=== PATIENT | female | born 1980 | race Caucasian/White ===

== ENCOUNTER 2016-12-28 16:44 | Emergency (ER) | payer SELFPAY ==
--- NOTE | 2016-12-28 19:30 | ED ORDER SUMMARY ---
..... Patient: YSABEL BAKER OrderSheet [facility] VisitID: [id number] [address] [place] [address] 36y, F Registration Date/Time: 12/28/2016 ORDER SHEET Weight: 58.9 kg (stated) Allergies: Reglan, Compazine GENERAL ORDERS: CBC w Diff Urgent (17:16 12/28/2016 Pia Tabares) (Ack 17:18 Bert) (18:20 JAVIERoerner) CMP Urgent (17:12/28/2016 Pia Tabares) (Ack 17:18 Bert) (18:20 JAVIERoerner) UA-Culture if indicated Urgent (17:12/28/2016 Pia Tabares) (Ack 17:18 Bert) (Cancelled: Verbal per [id number] Maximino R.N.) MEDICATION ORDERS: IV FLUIDS: IV NS : initial bolus none -, then 1000 mL/hr for X1 (NOW) (17:15 12/28/2016 Pia Tabares) (Ack 17:30 SStone R.N.) (17:46 SStone R.N.) Toradol IV 30 mg (NOW) (17:15 12/28/2016 Pia Tabares) (Ack 17:30 SStone R.N.) (17:47 SStone R.N.) Zofran IV 4 mg (NOW) (17:12/28/2016 Pia Tabares) (Ack 17:30 SStone R.N.) (17:47 SStone R.N.) Benadryl IV 25 mg (NOW) (17:16 12/28/2016 Pia Tabares) (Ack 17:31 SStone R.N.) (17:48 SStone R.N.) Dexamethasone IV 10 mg (NOW) (17:16 12/28/2016 Pia Tabares) (Ack 17:31 SStone R.N.) (17:48 SStone R.N.) Morphine IV 4 mg (HIGH ALERT MEDICATION, NOW) (18:52 12/28/2016 Pia Tabares) (Ack 19:09 CBradmelquiades R.N.) (19:17 Maximino Richardson) ORDER SHEET NOTES: [Electronically signed by Henna Tyler R.N. (19:44 12/28/2016)] [Electronically signed by Mike Kingston Dr. (22:05 12/28/2016)] [Electronically locked/signed by Henna Tyler R.N. (19:44 12/28/2016)]
--- NOTE | 2016-12-28 19:30 | ED NURSING NOTES ---
Clinical Report - Nurses [facility] [place] [address] [place] [address] 12/28/2016 16:47 Patient: YSABEL BAKER TRIAGE Triage time 16:59. Acuity: LEVEL 3. Chief Complaint: HEADACHE. --17:03 Jessica Walker R.N. 16:59 12/28/16. BP: 132/85. HR: 65. RR: 20. O2 saturation: 99%. Temp: 97.9 F. Pain level now: 03/04. --17:03 Jessica Walker R.N. Weight: 58.9 kg stated. Height/Length: 60 inches Per Patient. BMI: 25.4. --17:01 Jessica Walker R.N. Medications Maxalt prn. --17:00 Jessica Walker R.N. Allergies Reglan. --17:00 Jessica Walker R.N. Compazine. --17:00 Jessica Walker R.N. History Arrived by private vehicle. Historian: patient. This started yesterday. Treatment [employer]: (Maxalt x 2 and ibuprofen without relief.). PAST MEDICAL HX: Headaches. Last normal menstrual period- Pt. has an IUD and has not had periods while using it. SOCIAL HX: Current every day heavy tobacco smoker (cigarette)- 1 pack per day. History of occasional drug use: marijuana. No alcohol use. No infectious disease exposure. FALL RISK ASSESSMENT: Fall risk assessment completed. No fall risk identified. NUTRITIONAL RISK ASSESSMENT: The nutritional risk assessment revealed no deficiencies. FUNCTIONAL ASSESSMENT: Functional assessment: no impairments noted. LEARNING NEEDS ASSESSMENT: The learning needs assessment revealed no barriers. SKIN INTEGRITY ASSESSMENT: Skin integrity risk assessment completed. No skin integrity risk identified. --17:03 Jessica Walker R.N. PROBLEMS: Cystitis. Renal Colic. Nephrolithiasis. Depression. Flank Pain. Chronic Headache. --17:01 Jessica Walker R.N. Renal Colic [RuleOut]. --17:01 Jessica Walker R.N. ADDITIONAL SURGERIES: ACL graft . Appendectomy. . Cystoscopy. Lithotripsy. Tonsillectomy. Ureteral Stent. --17:01 Jessica Walker R.N. Interventions ID band on patient. To treatment room. --17:03 Jessica Walker R.N. PHYSICAL ASSESSMENT Ambulatory to room. GENERAL / NEURO / PSYCH: Alert. Oriented X 4. Appears in pain. Speech within normal limits. HEENT: No facial asymmetry noted. Pupils equal, round and reactive to light. RESPIRATORY: Respirations not labored. GI / : Abdomen soft and nontender. SKIN: Skin is warm and dry. --17:03 Jessica Walker R.N. NURSING PROGRESS NOTES Patient gowned. Head of bed elevated. Lights dimmed. Call light placed in reach. Bed placed in lowest position. Brakes of bed on. Patient ready for evaluation- chart flagged. Patient waiting for evaluation. --17:04 Jessica Walker R.N. 17:46 12/28/2016 Site #1 started via IV in the right antecubital space with an 20g angiocath. Blood drawn: rainbow set. --17:46 Jessica Walker R.N. 17:46 12/28/2016 Started bag #1 1000 mL IV Fluids IV NS (Saline); bolus of 750 mL wide open via site #1 --17:46 Jessica Walker R.N. 17:47 12/28/2016 Toradol IVP 30 mg given over 2 minute(s) via site #1. IV patency established. IV site checked: no pain, redness, or swelling. IV flushed thoroughly pre- and post-medication administration. --17:47 Jessica Walker R.N. 17:47 12/28/2016 Zofran (Ondansetron HCl) IVP 4 mg given over 2 minute(s) via site #1. IV patency established. IV site checked: no pain, redness, or swelling. IV flushed thoroughly pre- and post-medication administration. --17:47 Jessica Walker R.N. 17:48 12/28/2016 Benadryl (DiphenhydrAMINE HCl) IVP 25 mg given over 2 minute(s) via site #1. IV patency established. IV site checked: no pain, redness, or swelling. IV flushed thoroughly pre- and post-medication administration. --17:48 Jessica Walker R.N. 17:48 12/28/2016 Dexamethasone IVP 10 mg given over 5 minute(s) via site #1. IV patency established. IV site checked: no pain, redness, or swelling. IV flushed thoroughly pre- and post-medication administration. --17:48 Jessica Walker R.N. ( pt medicated and resting quietly.). --18:01 Jessica Walker R.N. 18:27 12/28/16. BP: 110/63. HR: 95. RR: 18. O2 saturation: 100%. Pain level now: 02/01. --18:27 Jessica Walker R.N. ( pt resting, states her headache is only marginally better. MD aware. No new orders given.). --18:27 Jessica Walker R.N. 19:15 12/28/2016 Morphine IVP 4 mg given over 2 minute(s) via site #1. Allergies verified, confirmed 5 rights and sedative warning given to the patient. IV patency established. IV site checked: no pain, redness, or swelling. IV flushed thoroughly pre- and post-medication administration. IVP given by RN. --19:17 Henna Tyler R.N. 19:15 12/28/2016 IV Fluids IV NS Discontinued: completed upon discharge. Total amount infused: 1000 mL. IV patency established. IV site checked: no pain, redness, or swelling. IV flushed thoroughly. --19:41 Henna Tyler R.N. 19:35 12/28/2016 Site #1 removed upon discharge. Catheter intact. Manual pressure and bandage applied. --19:41 Henna Tyler R.N. DISPOSITION / DISCHARGE Departure time: 1940. Condition at departure: improved and stable. No learning barriers present. Discharge instructions provided and reviewed with the patient. Reviewed medication(s) side effects, precautions, dosing and course information. Prescription(s) given to the patient. Patient verbalized understanding. Written instructions provided in Nepali. No activity restrictions or note given. The patient was discharged home and accompanied by spouse. She left the Emergency Department ambulatory and via private vehicle. Spouse driving. FALL RISK ASSESSMENT: Fall risk assessment completed. No fall risk identified. --19:44 Henna Tyler R.N. 19:40 12/28/16. BP: 106/70 taken on the left arm, while lying. HR: 65 (regular and normal rate). RR: 18 (regular and unlabored). O2 saturation: 97% on room air. Temp: deferred. Pain level now: 07/04. --19:44 Henna Tyler R.N. Locked/Released at 12/28/2016 19:44 by Henna Tyler R.N.
--- NOTE | 2016-12-28 19:30 | ED CLINICAL REPORT ---
Clinical Report - Physicians/Mid Levels [facility] [address] [place] [address] 12/28/2016 16:47 Patient: YSABEL BAKER Time Seen: 16:58; initial patient contact. Arrived- By private vehicle. Historian- patient. HISTORY OF PRESENT ILLNESS Chief Complaint: HEADACHE. Is still present. This started about 2 days ago. It was gradual in onset and has been constant. It is described as similar to previous headaches and pressure. Located in the frontal region. No neck pain. Not located in the facial region. At its maximum, severity described as moderate. Modifying factors: relieved by nothing. Not worsened by anything. The patient has had photophobia, nausea and vomiting. No preceding symptoms or blurred vision. Similar symptoms previously: Many times. Recent medical care: Not recently seen/assessed. REVIEW OF SYSTEMS No fever, sinus pressure, head injury or abdominal pain. She has had diarrhea, nausea and vomiting. All systems otherwise negative, except as recorded above. PAST HISTORY Cystitis. Renal Colic. Nephrolithiasis. Depression. Flank Pain. Chronic Headache. Renal Colic SURGERIES: ACL graft . Appendectomy. . Cystoscopy. Lithotripsy. Tonsillectomy. Ureteral Stent. -. SOCIAL HISTORY Current every day smoker. History of drug use: marijuana. ADDITIONAL NOTES The nursing notes have been reviewed. PHYSICAL EXAM Vital Signs: 12/28/2016 16:59 BP: 132/85. HR: 65. RR: 20. O2 saturation: 99%. Temp: 97.9 F. Pain level now: 9/10. Have been reviewed as normal. Appearance: Alert. No acute distress. Eyes: Photophobia present. Eyes normal inspection. ENT: Pharynx normal. Neck: Normal inspection. Neck supple. No meningeal signs. CVS: Normal heart rate and rhythm. Heart sounds normal. Respiratory: No respiratory distress. Breath sounds normal. Abdomen: Soft and nontender. Skin: Skin warm and dry. Normal skin color. No rash. Neuro: Oriented X 3. Alert. Mood/affect normal. Speech normal. LABS, X-RAYS, AND EKG Laboratory Tests: CBC w Diff: (CHARY: 12/28/2016 17:50) ( MsgRcvd 12/28/2016 17:59) Final results Test Result Flag Units (Reference) WHITE BLOOD COUNT 8.2 K/uL (4.5-11.5) RED BLOOD COUNT 4.59 M/uL (4.00-5.20) HEMOGLOBIN 14.4 gm/dL (12.0-16.0) HEMATOCRIT 42.5 % (36.0-46.0) MEAN CELL VOLUME 93 fL (80-100) MEAN CORPUSCULAR HGB 32 pg (26-34) MEAN CORPUSCULAR HGB CONC 34 g/dL (31-37) RED CELL DISTRIBUTION WIDTH 12.8 % (11.6-14.8) PLATELET COUNT 301 K/uL (150-400) NEUTROPHIL % 63.2 % (50-75) LYMPH % 29.2 % (25-40) MONO % 6.4 % (3-14) EOSINOPHIL % 0.7 % (0-4) BASOPHIL % 0.5 % (0-2) . PROGRESS AND PROCEDURES Disposition: Discharged home in good and improved condition. Condition: good. CLINICAL IMPRESSION Chronic recurrent migraine headache without aura- poorly controlled. No status migrainosus, hemiplegia, ophthalmoplegia or persistent aura. Not relationship to menses. INSTRUCTIONS Your Current Medications: CONTINUE TAKING THE FOLLOWING MEDICATIONS: Maxalt prn*. Prescription Medications: Zofran (orally disintegrating tablets) 4 mg: take 1 orally every 6 hours as needed for nausea and vomiting. Dispense ten (10). No refill. Substitution is permissible. Follow-up: Follow up with your doctor in about four days. Call for an appointment. Screening today revealed the patient's blood pressure to be in the normal range. (Electronically signed by Mike Kingston Dr. 12/28/2016 22:05)
--- NOTE | 2016-12-28 19:30 | ED ORDER SUMMARY ---
..... Patient: YSABEL BAKER OrderSheet [facility] VisitID: [id number] [address] [place] [address] 36y, F Registration Date/Time: 12/28/2016 ORDER SHEET Weight: 58.9 kg (stated) Allergies: Reglan, Compazine GENERAL ORDERS: CBC w Diff Urgent (17:16 12/28/2016 Pia Tabares) (Ack 17:18 Bert) (18:20 JAVIERoerner) CMP Urgent (17:12/28/2016 Pia Tabares) (Ack 17:18 Bert) (18:20 JAVIERoerner) UA-Culture if indicated Urgent (17:12/28/2016 Pia Tabares) (Ack 17:18 Bert) (Cancelled: Verbal per [id number] Maximino R.N.) MEDICATION ORDERS: IV FLUIDS: IV NS : initial bolus none -, then 1000 mL/hr for X1 (NOW) (17:15 12/28/2016 Pia Tabares) (Ack 17:30 SStone R.N.) (17:46 SStone R.N.) Toradol IV 30 mg (NOW) (17:15 12/28/2016 Pia Tabares) (Ack 17:30 SStone R.N.) (17:47 SStone R.N.) Zofran IV 4 mg (NOW) (17:12/28/2016 Pia Tabares) (Ack 17:30 SStone R.N.) (17:47 SStone R.N.) Benadryl IV 25 mg (NOW) (17:16 12/28/2016 Pia Tabares) (Ack 17:31 SStone R.N.) (17:48 SStone R.N.) Dexamethasone IV 10 mg (NOW) (17:16 12/28/2016 Pia Tabares) (Ack 17:31 SStone R.N.) (17:48 SStone R.N.) Morphine IV 4 mg (HIGH ALERT MEDICATION, NOW) (18:52 12/28/2016 Pia Tabares) (Ack 19:09 CBradmelquiades R.N.) (19:17 Maximino Richardson) ORDER SHEET NOTES: [Electronically signed by Henna Tyler R.N. (19:44 12/28/2016)] [Electronically signed by Mike Kingston Dr. (22:05 12/28/2016)] [Electronically locked/signed by Henna Tyler R.N. (19:44 12/28/2016)]
--- NOTE | 2016-12-28 22:05 | ED DISCHARGE INSTRUCTIONS ---
Patient: YSABEL BAKER General Instructions [facility] VisitID: [id number] [address] [place] [address] 36y, F Registration Date/Time: 12/28/2016 Chronic recurrent migraine headache without aura- poorly controlled. No status migrainosus, hemiplegia, ophthalmoplegia or persistent aura. Not relationship to menses. INSTRUCTIONS Your Current Medications: CONTINUE TAKING THE FOLLOWING MEDICATIONS: Maxalt prn*. Prescription Medications: Zofran (orally disintegrating tablets) 4 mg: take 1 orally every 6 hours as needed for nausea and vomiting. Dispense ten (10). No refill. Substitution is permissible. Follow-up: Follow up with your doctor in about four days. Call for an appointment. Screening today revealed the patient's blood pressure to be in the normal range. ADDITIONAL INFORMATION Migraine Headache Migraine headaches are related to changes in blood flow to the brain. This causes throbbing or constant pain on one or both sides of the head. The pain may last from a few hours to several days. There is usually nausea, vomiting, sensitivity to light and sound, and blurred vision. A migraine attack may be triggered by emotional stress, hormone changes during the menstrual cycle, oral contraceptives, alcohol use, certain foods containing tyramine, eye strain, weather changes, missing meals, or too little or too much sleep. Home Care For This Headache: 1) If you were given pain medicine for this headache, do not drive yourself home . Arrange for a ride, instead. When you get home, try to sleep. You should feel much better when you wake up. 2) Migraine headaches may improve with an ice pack on the forehead or at the base of the skull. Heat to the back of your neck may relieve any neck spasm. 3) Drink only clear liquids or eat a very light diet to avoid nausea/vomiting until symptoms improve. Preventing Future Headaches: 1) Pay attention to those factors that seem to trigger your headache. Try to avoid them when you can. If you have frequent headaches, it is useful to keep a diary of what you were doing, feeling or eating in the hours before each attack. Show this to your doctor to help find the cause of your headaches. a) If you feel that stress is a factor in your headaches, look at the sources of stress in your life. Find ways to release the build-up of those stresses by using regular exercise, relaxation methods (yoga, meditation), bio-feedback or simply taking time-out for yourself. For more information about this, consult your doctor or go to a local bookstore and review books and tapes on this subject. b) Tyramine is a substance present in the following foods : chocolate, yogurt, all cheeses except cottage cheese and cream cheese. smoked or pickled fish and meat (including velázquez, caviar, bologna, pepperoni, salami), liver, avocados, bananas, figs, raisins, and red wine. Be aware that these foods may trigger a migraine in some persons. Try taking these foods out of your diet for 1-2 months to see if this reduces headache frequency. Treating Future Attacks: 1) At the first sign of a headache, take time out if possible. Find a quiet, dark, comfortable place to sit or lie down. Let yourself relax or sleep. 2) An ice pack on the forehead or area of greatest pain may help. If you are having muscle spasm and tightness of the neck, a heating pad and massage to this area may be helpful. 3) If you have been prescribed a medicine to stop a migraine headache, use this at the very first warning sign of the headache (aura or initial pain) for best results. Follow Up with your doctor if the headache is not better within the next 24 hours. If you have frequent headaches you should discuss a treatment plan with your primary care doctor. Ask if you can have medicine to take at home the next time you get a bad headache. Poorly controlled chronic headaches may require a referral to a neurologist (headache specialist). Get Prompt Medical Attention if any of the following occur: Your head pain gets worse, or does not improve within 24 hours Repeated vomiting (cant keep liquids down) Sinus or ear or throat pain (not already reported) Fever of 100.4 F (38 C) or higher, or as directed by your healthcare provider Stiff neck Extreme drowsiness, confusion or fainting Dizziness, vertigo (dizziness with spinning sensation) Weakness of an arm or leg or one side of the face Difficulty with speech or vision Ondansetron Oral disintegrating tablet What is this medicine? ONDANSETRON (on EBEN se cortez) is used to treat nausea and vomiting caused by chemotherapy. It is also used to prevent or treat nausea and vomiting after surgery. How should I use this medicine? These tablets are made to dissolve in the mouth. Do not try to push the tablet through the foil backing. With dry hands, peel away the foil backing and gently remove the tablet. Place the tablet in the mouth and allow it to dissolve, then swallow. While you may take these tablets with water, it is not necessary to do so. Talk to your customs compliance specialist regarding the use of this medicine in children. Special care may be needed. What side effects may I notice from receiving this medicine? Side effects that you should report to your doctor or health critical care nurse practitioner as soon as possible: allergic reactions like skin rash, itching or hives, swelling of the face, lips, or tongue breathing problems dizziness fast or irregular heartbeat feeling faint or lightheaded, falls fever and chills swelling of the hands and feet tightness in the chest Side effects that usually do not require medical attention (report to your doctor or health critical care nurse practitioner if they continue or are bothersome): constipation or diarrhea headache What may interact with this medicine? Do not take this medicine with any of the following medications: -apomorphine -cisapride -dofetilide -dronedarone -pimozide -thioridazine -ziprasidone This medicine may also interact with the following medications: -carbamazepine -phenytoin -rifampicin -tramadol -other medicines that prolong the QT interval (cause an abnormal heart rhythm) What if I miss a dose? If you miss a dose, take it as soon as you can. If it is almost time for your next dose, take only that dose. Do not take double or extra doses. Where should I keep my medicine? Keep out of the reach of children. Store between 2 and 30 degrees C (36 and 86 degrees F). Throw away any unused medicine after the expiration date. What should I tell my health care provider before I take this medicine? They need to know if you have any of these conditions: heart disease history of irregular heartbeat liver disease low levels of magnesium or potassium in the blood an unusual or allergic reaction to ondansetron, granisetron, other medicines, foods, dyes, or preservatives or trying to get breast-feeding What should I watch for while using this medicine? Check with your doctor or health critical care nurse practitioner as soon as you can if you have any sign of an allergic reaction. You have been given the following additional information: Headache, Migraine (Classical) Ondansetron Oral disintegrating tablet (Electronically signed by Mike Kingston Dr. 12/28/2016 22:05)
--- NOTE | 2016-12-28 22:06 | ED MAR SUMMARY ---
..... Medication Administration Record [facility] [address] [place] [address] Patient: YSABEL BAKER Visit ID: [id number] 36y, F Weight: 58.9 kg Height/Length: 60 in BMI: 25.4 ALLERGIES: Compazine, Reglan Start 17:46 12/28/2016 Jessica Walker R.N., Stop 19:15 12/28/2016 Henna Tyler R.N. Medication Administered: IV NS (SALINE), Dose: IV Fluids, Bolus: 750 mL wide open, Dispensed: 1000 mL bag, Site: #1 right AC. Medication Ordered: IV NS : initial bolus none -, then 1000 mL/hr for X1 (NOW). Given 17:47 12/28/2016 Jessica Walker R.N. Medication Administered: TORADOL [IVP], Dose: 30 mg IVP over 2 minute(s), Site: #1 right AC. Medication Ordered: Toradol IV 30 mg (NOW). Given 17:47 12/28/2016 Jessica Walker R.N. Medication Administered: ZOFRAN [IVP] (ONDANSETRON HCL), Dose: 4 mg IVP over 2 minute(s), Site: #1 right AC. Medication Ordered: Zofran IV 4 mg (NOW). Given 17:48 12/28/2016 Jessica Walker R.N. Medication Administered: BENADRYL [IVP] (DIPHENHYDRAMINE HCL), Dose: 25 mg IVP over 2 minute(s), Site: #1 right AC. Medication Ordered: Benadryl IV 25 mg (NOW). Given 17:48 12/28/2016 Jessica Walker R.N. Medication Administered: DEXAMETHASONE [IVP], Dose: 10 mg IVP over 5 minute(s), Site: #1 right AC. Medication Ordered: Dexamethasone IV 10 mg (NOW). Given 19:15 12/28/2016 Henna Tyler R.N. Medication Administered: MORPHINE [IVP], Dose: 4 mg IVP over 2 minute(s), Site: #1 right AC. Medication Ordered: Morphine IV 4 mg (HIGH ALERT MEDICATION, NOW).
--- NOTE | 2016-12-28 22:06 | ED MED RECONCILIATION SUMMARY ---
Patient: YSABEL BAKER Medication Reconciliation Report [facility] VisitID: [id number] [address] [place] [address] 36y, F Registration Date/Time: 12/28/2016 Weight: 58.9 kg Height/Length: 60 in. BMI: 25.4 ALLERGIES: Compazine, Reglan The patient's Home Medications are listed below: CONTINUE TAKING THE FOLLOWING MEDICATIONS: Maxalt prn The source(s) of the original Home Medication information: Not obtained. The following Medications were given to the patient in the Emergency Department: IV NS IV Fluids bolus 750 mL wide open, administered: 12/28/2016 5:46:00 PM Toradol [IVP] IVP 30 mg, administered: 12/28/2016 5:47:00 PM Zofran [IVP] IVP 4 mg, administered: 12/28/2016 5:47:00 PM Benadryl [IVP] IVP 25 mg, administered: 12/28/2016 5:48:00 PM Dexamethasone [IVP] IVP 10 mg, administered: 12/28/2016 5:48:00 PM Morphine [IVP] IVP 4 mg, administered: 12/28/2016 7:15:00 PM The following Medications were prescribed to the patient: Zofran (orally disintegrating tablets) 4 mg: take 1 orally every 6 hours as needed for nausea and vomiting. Dispense ten (10). No refill. Substitution is permissible. -- Mike Kingston Dr.
--- NOTE | 2016-12-28 22:06 | ED MAR SUMMARY ---
..... Medication Administration Record [facility] [address] [place] [place] [address] Patient: YSABEL BAKER Visit ID: [id number] 36y, F Weight: 58.9 kg Height/Length: 60 in BMI: 25.4 ALLERGIES: Compazine, Reglan Start 17:46 12/28/2016 Jessica Walker R.N., Stop 19:15 12/28/2016 Henna Tyler R.N. Medication Administered: IV NS (SALINE), Dose: IV Fluids, Bolus: 750 mL wide open, Dispensed: 1000 mL bag, Site: #1 right AC. Medication Ordered: IV NS : initial bolus none -, then 1000 mL/hr for X1 (NOW). Given 17:47 12/28/2016 Jessica Walker R.N. Medication Administered: TORADOL [IVP], Dose: 30 mg IVP over 2 minute(s), Site: #1 right AC. Medication Ordered: Toradol IV 30 mg (NOW). Given 17:47 12/28/2016 Jessica Walker R.N. Medication Administered: ZOFRAN [IVP] (ONDANSETRON HCL), Dose: 4 mg IVP over 2 minute(s), Site: #1 right AC. Medication Ordered: Zofran IV 4 mg (NOW). Given 17:48 12/28/2016 Jessica Walker R.N. Medication Administered: BENADRYL [IVP] (DIPHENHYDRAMINE HCL), Dose: 25 mg IVP over 2 minute(s), Site: #1 right AC. Medication Ordered: Benadryl IV 25 mg (NOW). Given 17:48 12/28/2016 Jessica Walker R.N. Medication Administered: DEXAMETHASONE [IVP], Dose: 10 mg IVP over 5 minute(s), Site: #1 right AC. Medication Ordered: Dexamethasone IV 10 mg (NOW). Given 19:15 12/28/2016 Henna Tyler R.N. Medication Administered: MORPHINE [IVP], Dose: 4 mg IVP over 2 minute(s), Site: #1 right AC. Medication Ordered: Morphine IV 4 mg (HIGH ALERT MEDICATION, NOW).
--- NOTE | 2016-12-28 22:06 | ED MED RECONCILIATION SUMMARY ---
Patient: YSABEL BAKER Medication Reconciliation Report [facility] VisitID: [id number] [address] [place] [address] 36y, F Registration Date/Time: 12/28/2016 Weight: 58.9 kg Height/Length: 60 in. BMI: 25.4 ALLERGIES: Compazine, Reglan The patient's Home Medications are listed below: CONTINUE TAKING THE FOLLOWING MEDICATIONS: Maxalt prn The source(s) of the original Home Medication information: Not obtained. The following Medications were given to the patient in the Emergency Department: IV NS IV Fluids bolus 750 mL wide open, administered: 12/28/2016 5:46:00 PM Toradol [IVP] IVP 30 mg, administered: 12/28/2016 5:47:00 PM Zofran [IVP] IVP 4 mg, administered: 12/28/2016 5:47:00 PM Benadryl [IVP] IVP 25 mg, administered: 12/28/2016 5:48:00 PM Dexamethasone [IVP] IVP 10 mg, administered: 12/28/2016 5:48:00 PM Morphine [IVP] IVP 4 mg, administered: 12/28/2016 7:15:00 PM The following Medications were prescribed to the patient: Zofran (orally disintegrating tablets) 4 mg: take 1 orally every 6 hours as needed for nausea and vomiting. Dispense ten (10). No refill. Substitution is permissible. -- Mike Kingston Dr.
== END 2016-12-28 19:41 | disposition home or self-care (01) ==
LOC: ED SRH 16:44
DX: G43.019 Migraine without aura, intractable, without status migrainosus (principal); H53.143 Visual discomfort, bilateral; F17.210 Nicotine dependence, cigarettes, uncomplicated
CPT/HCPCS: 90100; 95059

== ENCOUNTER 2016-12-31 18:23 | Emergency (ER) | payer SELFPAY ==
--- NOTE | 2016-12-31 19:12 | DIAGNOSTIC IMAGING REPORT ---
PROCEDURE: CT HEAD WITHOUT CONTRAST INDICATION: Occipital headache. History of migraines. TECHNIQUE: Noncontrast axial images with sagittal and coronal reformations. The patient was shielded. COMPARISON: Compared to a head CT on 10/29/2011. FINDINGS: Brain and ventricles are normal. No evidence of an acute process or hemorrhage. Sinuses and mastoids are normal. IMPRESSION: 1. Negative head CT. 2. Findings discussed with CL Juarez at [address] scans at this facility use dose modulation, iterative reconstruction, and/or weight-based dosing when appropriate to reduce radiation dose to as low as reasonably achievable.
--- NOTE | 2016-12-31 22:58 | ED ORDER SUMMARY ---
..... Patient: YSABEL BAKER OrderSheet [facility] VisitID: [id number] [place] [address] 36y, F Registration Date/Time: 12/31/2016 ORDER SHEET Weight: 61.2 kg (stated) Allergies: Compazine, Reglan GENERAL ORDERS: CT Head wo Cont Urgent (18:50 12/31/2016 EKoroleva P.A.-C) (Ack 18:54 KHoerner) (18:58 WDavenport) CBC w Diff Urgent (18:51 12/31/2016 EKoroleva P.A.-C) (Ack 18:54 KHoerner) (19:42 DDean R.N.) CMP Urgent (18:51 12/31/2016 EKoroleva P.A.-C) (Ack 18:54 KHoerner) (19:42 DDean R.N.) US Carotid Doppler Bilat Urgent (20:47 12/31/2016 EKoroleva P.A.-C) (Ack 20:48 CHagerty ER Plater Helper) (22:29 CHagerty ER Plater Helper) MEDICATION ORDERS: Meclizine PO 25 mg (NOW) (22:48 12/31/2016 EKoroleva P.A.-C) (Ack 23:06 RMarsden R.N.) (23:24 RMarsden R.N.) Phenergan IV 25 mg (HIGH ALERT MEDICATION, NOW) (22:48 12/31/2016 EKoroleva P.A.-C) (Ack 23:06 RMarsden R.N.) (23:24 RMarsden R.N.) IV FLUIDS: IV NS : initial bolus 1000 mL (1000 mL/hr), then 1000 mL/hr for X1 (NOW); Erwin (18:50 12/31/2016 EKoroleva P.A.-C) (Ack 19:42 DDean R.N.) (19:45 DDean R.N.) Toradol IV 30 mg (NOW) (18:52 12/31/2016 EKoroleva P.A.-C) (Ack 19:42 DDean R.N.) (19:46 DDean R.N.) Zofran IV 4 mg (NOW) (18:52 12/31/2016 EKoroleva P.A.-C) (Ack 19:42 DDean R.N.) (19:46 DDean R.N.) Dilaudid IV 1 mg (HIGH ALERT MEDICATION, NOW) (20:31 12/31/2016 EKoroleva P.A.-C) (Ack 20:37 DDean R.N.) (21:31 DDean R.N.) Decadron IV 10 mg (NOW) (21:15 12/31/2016 EKoroleva P.A.-C) (21:30 DDean R.N.) Ativan IV 1 mg (HIGH ALERT MEDICATION, NOW) (21:38 12/31/2016 EKoroleva P.A.-C) (21:47 DDean R.N.) Dilaudid IV 1 mg (HIGH ALERT MEDICATION, NOW) (22:48 12/31/2016 EKoroleva P.A.-C) (Ack 23:06 RMarsden R.N.) (23:25 RMarsden R.N.) ORDER SHEET NOTES: [Electronically signed by Irma Asher R.N. (04:50 01/01/2017)] [Electronically signed by Peggy Aguirre P.A.-C (13:33 01/01/2017)] [Electronically locked/signed by Irma Asher R.N. (04:50 01/01/2017)]
--- NOTE | 2016-12-31 22:58 | ED NURSING NOTES ---
Clinical Report - Nurses [facility] [address] [place] [address] 12/31/2016 18:24 Patient: YSABEL BAKER TRIAGE Triage time 1830. Acuity: LEVEL 3. Chief Complaint: MIGRAINE HEADACHE and (ptwas here on Sunday for same. Pt states headache gone after tx sunday, but came back Sat night.). --18:37 Janet Spain R.N. 18:30 12/31/16. BP: 115/79. HR: 76. RR: 24. O2 saturation: 100%. Temp: 98.2 F. Pain level now: 03/04. --18:37 Janet Spain R.N. Weight: 61.2 kg stated. Height/Length: 60 inches. BMI: 26.4. --18:36 Janet Spain R.N. Medications Maxalt prn. --18:34 Janet Spain R.N. zofran 4mg ODT taking without relief today. --18:35 Janet Spain R.N. Allergies Compazine. Reglan. --18:34 Janet Spain R.N. History Arrived by private vehicle. Historian: patient. Accompanied by family. Primary physician ([facility]). The patient has had nausea and vomiting. SOCIAL HX: Heavy tobacco smoker (cigarette)- less than 1 pack per day. History of drug use: marijuana. No alcohol use. --18:37 Janet Spain R.N. PROBLEMS: Pelvic Pain. Cystitis. Tension-Type Headache. Gastroenteritis. Headache. Renal Colic. Nephrolithiasis. Soft Tissue Foreign Body. Depression. Vomiting. Diarrhea. Hematuria. Chronic Headache. Migraine Headache. --18:36 Janet Spain R.N. Renal Colic [RuleOut]. --18:36 Janet Spain R.N. ADDITIONAL SURGERIES: ACL graft . Appendectomy. . Cystoscopy. Lithotripsy. Tonsillectomy. Ureteral Stent. --18:36 Janet Spain R.N. Interventions ID band on patient. To treatment room. --18:37 Janet Spain R.N. PHYSICAL ASSESSMENT 18:30. Ambulatory to room. Patient gowned. GENERAL / NEURO / PSYCH: Alert. Oriented X 4. Appears in pain. Speech within normal limits. HEENT: No facial asymmetry noted. RESPIRATORY: Respirations not labored. CVS: Capillary refill less than 2 seconds. GI / : Abdomen soft. SKIN: Skin is warm and dry. --18:38 Janet Spain R.N. NURSING PROGRESS NOTES 18:30. Reassurance given. Lights dimmed. Patient identifiers checked. Call light placed in reach. Side rails up. Bed placed in lowest position. Patient ready for evaluation- chart flagged. --18:38 Janet Spain R.N. 19:00 12/31/2016 Site #1 started via IV in the right forearm with an 20g angiocath, with aseptic technique and good blood return; one attempt. Blood drawn: rainbow set. Labeled in the presence of the patient and sent to the lab. Saline lock flushed with 10 mL saline. --19:43 Janet Spain R.N. 19:00 IV started, bloods drawn, meds given. --19:43 Janet Spain R.N. 19:05 12/31/2016 Started bag #1 1000 mL IV Fluids IV NS (Saline); at 1000 mL/hr over 1 minute(s) via site #1 via IV pump. IV patency established. IV site checked: no pain, redness, or swelling. IV flushed thoroughly pre- and post-medication administration. --19:45 Janet Spain R.N. 19:07 12/31/2016 Zofran (Ondansetron HCl) IVP 4 mg given over 1 minute(s) via site #1. IV patency established. IV site checked: no pain, redness, or swelling. IV flushed thoroughly pre- and post-medication administration. IVP given by RN. --19:46 Janet Spain R.N. 19:08 12/31/2016 Toradol IVP 30 mg given over 1 minute(s) via site #1. IV patency established. IV site checked: no pain, redness, or swelling. IV flushed thoroughly pre- and post-medication administration. IVP given by RN. --19:46 Janet Spain R.N. 19:40 Pt resting quietly in darkened room. states no improvement with headache. --19:47 Janet Spain R.N. 20:20 12/31/16. BP: 111/72. HR: 76. RR: 16. O2 saturation: 100% on room air. Temp: deferred. Pain level now: 03/04. Additional comments: pt reports no improvment, waiting on lab and CT results. --20:30 Janet Spain R.N. 20:15 12/31/2016 IV Fluids IV NS Bag Change: bag #1 infused. Total amount infused: 1000. STARTED bag #2 (1000 mL) at 1000 mL/hr via IV pump. IV patency established. IV site checked: no pain, redness, or swelling. IV flushed thoroughly. --20:31 Janet Spain R.N. 21:20 12/31/16. BP: 112/55. HR: 54. RR: 16. O2 saturation: 99%. Temp: deferred. Pain level now: 03/04. Additional comments: states still has bad headache. addiitonal meds ordered and given. US will be here in about 40 min , pt notified . --21:24 Janet Spain R.N. 20:35 12/31/2016 Dilaudid (HYDROmorphone HCl PF) IVP 1 mg given over 1 minute(s) via site #1. Sedative warning given to the patient. IV patency established. IV site checked: no pain, redness, or swelling. IV flushed thoroughly pre- and post-medication administration. IVP given by RN. --21:31 Janet Spain R.N. 21:10 12/31/2016 Decadron IVP 10 mg given over 1 minute(s) via site #1. IV patency established. IV site checked: no pain, redness, or swelling. IV flushed thoroughly pre- and post-medication administration. IVP given by RN. --21:30 Janet Spain R.N. 21:40 12/31/2016 Ativan (LORazepam) IVP 1 mg given over 1 minute(s) via site #1. Sedative warning given to the patient. IV patency established. IV site checked: no pain, redness, or swelling. IV flushed thoroughly pre- and post-medication administration. IVP given by RN. --21:47 Janet Spain R.N. 21:50 12/31/2016 IV Fluids IV NS Discontinued: bag #2 infused. Total amount infused: 1000 mL. IV patency established. IV site checked: no pain, redness, or swelling. IV flushed thoroughly. --22:00 Janet Spain R.N. 21:40 Pt given additional meds for headache, son taken to consultation room to sleep. pt given extra blanket. --22:07 Janet Spain R.N. 22:36 12/31/16. Care transferred and report given (MARY Khan). --22:36 Janet Spain R.N. Care transferred and report received (from RESHMA Gonzales). --22:41 Irma Asher R.N. 23:09 12/31/2016 Meclizine PO Tablets 25 mg given. Allergies verified, confirmed 5 rights and sedative warning given to the patient. --23:24 Irma Asher R.N. 23:14 12/31/2016 PHENERGAN (Promethazine HCl) IVP 25 mg given over 5 minute(s) via site #1. Allergies verified and confirmed 5 rights. IV patency established. IV site checked: no pain, redness, or swelling. IV flushed thoroughly pre- and post-medication administration. IVP given by RN. --23:24 Irma Asher R.N. 23:16 12/31/2016 Dilaudid (HYDROmorphone HCl PF) IVP 1 mg given over 2 minute(s) via site #1. Allergies verified, confirmed 5 rights and sedative warning given to the patient. IV patency established. IV site checked: no pain, redness, or swelling. IV flushed thoroughly pre- and post-medication administration. IVP given by RN. --23:25 Irma Asher R.N. DISPOSITION / DISCHARGE 23:31. No learning barriers present. Discharge instructions provided and reviewed with the patient. Reviewed warnings. Reviewed medication(s). Treatments reviewed. Patient verbalized understanding. Written instructions provided in Albanian. The patient was discharged home and accompanied by family. She left the Emergency Department ambulatory and via private vehicle. Family member driving. --23:35 Irma Asher R.N. 23:29 12/31/16. BP: 125/79. HR: 74. RR: 15. O2 saturation: 100%. Temp: deferred. Pain level now: 12/02. --23:35 Irma Asher R.N. Locked/Released at 01/01/2017 4:50 by Irma Asher R.N.
--- NOTE | 2016-12-31 22:58 | ED CLINICAL REPORT ---
Clinical Report - Physicians/Mid Levels [facility] [address] [place] [address] 12/31/2016 18:24 Patient: YSABEL BAKER Time Seen: 19:33 Dec 31 2016. Arrived- By private vehicle. Historian- patient. HISTORY OF PRESENT ILLNESS Is still present. Chief Complaint: HEADACHE. This started yesterday. Located in the right parietal, left parietal and occipital region and has had neck pain. Not located in the facial region. There were preceding symptoms. She has had blurred vision, nausea and numbness. (Patient reports recently here in the emergency department on the , with a throbbing headache, posterior to her eye, now her headache started on Sunday evening is posterior in nature into her neck. Throbbing headache. Patient with neck pain. Denies fevers or reports nausea.). REVIEW OF SYSTEMS No sinus pressure, ear pain, abdominal pain or diarrhea. All systems otherwise negative, except as recorded above. SOCIAL HISTORY Current every day heavy tobacco smoker. History of drug use: marijuana. ADDITIONAL NOTES The nursing notes have been reviewed. PHYSICAL EXAM Vital Signs: 12/31/2016 18:30 BP: 115/79. HR: 76. RR: 24. O2 saturation: 100%. Temp: 98.2 F. Pain level now: 9/10. Appearance: Alert. Head: No tenderness to palpation/percussion over the sinuses. Eyes: Pupils equal, round and reactive to light. ENT: Pharynx normal. No tonsillar exudate. Neck: Normal inspection. No meningeal signs. CVS: Normal heart rate and rhythm. Heart sounds normal. Respiratory: No respiratory distress. No respiratory distress. Breath sounds normal. Abdomen: Soft and nontender. No organomegaly. No abdominal tenderness or organomegaly. Neuro: Oriented X 3. Alert. Mood/affect normal. Cranial nerves normal (as tested). No cerebellar findings. No motor deficit. No sensory deficit. LABS, X-RAYS, AND EKG CT Head: (IMPRESSION: 1. Negative head CT. 2. Findings discussed with Pau Aguirre PAC at [address] scans at this facility use dose modulation, iterative reconstruction, and/or weight-based dosing when appropriate to reduce radiation dose to as low as reasonably achievable. Electronically Final signed by:Nikolay Ruiz MD 12/31/2016 7:06:59 PM). Laboratory Tests: CBC w Diff: (CHARY: 12/31/2016 19:05) ( MsgRcvd 12/31/2016 19:26) Final results Test Result Flag Units (Reference) WHITE BLOOD COUNT 10.1 K/uL (4.5-11.5) RED BLOOD COUNT 4.07 M/uL (4.00-5.20) HEMOGLOBIN 13.0 gm/dL (12.0-16.0) HEMATOCRIT 37.6 % (36.0-46.0) MEAN CELL VOLUME 93 fL (80-100) MEAN CORPUSCULAR HGB 32 pg (26-34) MEAN CORPUSCULAR HGB CONC 35 g/dL (31-37) RED CELL DISTRIBUTION WIDTH 12.9 % (11.6-14.8) PLATELET COUNT 273 K/uL (150-400) NEUTROPHIL % 65.3 % (50-75) LYMPH % 26.7 % (25-40) MONO % 6.0 % (3-14) EOSINOPHIL % 1.3 % (0-4) BASOPHIL % 0.7 % (0-2) CMP: (CHARY: 12/31/2016 19:05) ( MsgRcvd 12/31/2016 20:24) Final results Test Result Flag Units (Reference) GLUCOSE 89 mg/dL (70-110) BUN 18 mg/dL (7-18) CREATININE 0.6 mg/dL (0.6-1.3) Estimated GFR >60 mL/min Estimated GFR- >60 mL/min Note: Persistent reduction over 3 months in eGFR<60 mL/min/1.73 m2 defines CKD. Patients with eGFR values>=60 mL/min/1.73 m2 may also have CKD if evidence ofpersistent proteinuria. Additional information may be foundat www.kidney.org. SODIUM 142 mmol/L (136-145) POTASSIUM 3.8 mmol/L (3.5-5.1) CHLORIDE 106 mmol/L (98-107) CARBON DIOXIDE 25 mmol/L (21-32) CALCIUM 8.4 L mg/dL (8.5-10.1) TOTAL PROTEIN 6.4 g/dL (6.4-8.2) ALBUMIN 3.6 g/dL (3.3-5.0) BILIRUBIN, TOTAL 0.2 mg/dL (0.0-1.0) ALKALINE PHOSPHATASE 66 U/L (46-116) AST (SGOT) 22 U/L (15-37) ALT (SGPT) 36 U/L (12-78) . PROGRESS AND PROCEDURES Course of Care: patient with posterior headache. Case discussed with Dr. Kingston. patient with no emesis no fever in the ER labs are unremarkable. CT head unremarkable. Ultrasound carotid unremarkable, exam is negative. No signs of neurological deficits. HEENT exam is unremarkable. Broad differential, including meningitis subarachnoid hemorrhage, intracranial hemorrhage vascular malformations, all of these are lowest of likelihood given workup. Patient was given extensive medications in the emergency department, which improved her symptoms, she is urged to follow-up with her primary care provider, as well as neurology. She understands the plan. Here with her and significant other as well as child. Discussed case in differential extensively with Dr. Kingston. 12/31/2016 23:29 BP: 125/79. HR: 74. RR: 15. O2 saturation: 100%. Pain level now: 12/02. 12/31/2016 21:20 BP: 112/55. HR: 54. RR: 16. O2 saturation: 99%. Pain level now: 03/04. 12/31/2016 20:20 BP: 111/72. HR: 76. RR: 16. O2 saturation: 100%. Pain level now: 03/04. Patient is stable. Physical exam findings are improved. Symptoms better. Patient/family counseled. Disposition: Discharged. Condition: good. CLINICAL IMPRESSION Headache- resistant to treatment. INSTRUCTIONS (if any sudden changes, new vomiting/ fevers, return to ER). Warnings: Further evaluation is necessary. CONTROLLED SUBSTANCE WARNINGS. Follow-up: Follow up with your doctor in two days. (Electronically signed by Peggy Aguirre P.A.-C 01/01/2017 13:33)
--- NOTE | 2016-12-31 22:58 | ED ORDER SUMMARY ---
..... Patient: YSABEL BAKER OrderSheet [facility] VisitID: [id number] [place] [address] 36y, F Registration Date/Time: 12/31/2016 ORDER SHEET Weight: 61.2 kg (stated) Allergies: Compazine, Reglan GENERAL ORDERS: CT Head wo Cont Urgent (18:50 12/31/2016 EKoroleva P.A.-C) (Ack 18:54 KHoerner) (18:58 WDavenport) CBC w Diff Urgent (18:51 12/31/2016 EKoroleva P.A.-C) (Ack 18:54 KHoerner) (19:42 DDean R.N.) CMP Urgent (18:51 12/31/2016 EKoroleva P.A.-C) (Ack 18:54 KHoerner) (19:42 DDean R.N.) US Carotid Doppler Bilat Urgent (20:47 12/31/2016 EKoroleva P.A.-C) (Ack 20:48 CHagerty ER Cafe Attendant) (22:29 CHagerty ER Cafe Attendant) MEDICATION ORDERS: Meclizine PO 25 mg (NOW) (22:48 12/31/2016 EKoroleva P.A.-C) (Ack 23:06 RMarsden R.N.) (23:24 RMarsden R.N.) Phenergan IV 25 mg (HIGH ALERT MEDICATION, NOW) (22:48 12/31/2016 EKoroleva P.A.-C) (Ack 23:06 RMarsden R.N.) (23:24 RMarsden R.N.) IV FLUIDS: IV NS : initial bolus 1000 mL (1000 mL/hr), then 1000 mL/hr for X1 (NOW); Erwin (18:50 12/31/2016 EKoroleva P.A.-C) (Ack 19:42 DDean R.N.) (19:45 DDean R.N.) Toradol IV 30 mg (NOW) (18:52 12/31/2016 EKoroleva P.A.-C) (Ack 19:42 DDean R.N.) (19:46 DDean R.N.) Zofran IV 4 mg (NOW) (18:52 12/31/2016 EKoroleva P.A.-C) (Ack 19:42 DDean R.N.) (19:46 DDean R.N.) Dilaudid IV 1 mg (HIGH ALERT MEDICATION, NOW) (20:31 12/31/2016 EKoroleva P.A.-C) (Ack 20:37 DDean R.N.) (21:31 DDean R.N.) Decadron IV 10 mg (NOW) (21:15 12/31/2016 EKoroleva P.A.-C) (21:30 DDean R.N.) Ativan IV 1 mg (HIGH ALERT MEDICATION, NOW) (21:38 12/31/2016 EKoroleva P.A.-C) (21:47 DDean R.N.) Dilaudid IV 1 mg (HIGH ALERT MEDICATION, NOW) (22:48 12/31/2016 EKoroleva P.A.-C) (Ack 23:06 RMarsden R.N.) (23:25 RMarsden R.N.) ORDER SHEET NOTES: [Electronically signed by Irma Asher R.N. (04:50 01/01/2017)] [Electronically signed by Peggy Aguirre P.A.-C (13:33 01/01/2017)] [Electronically locked/signed by Irma Asher R.N. (04:50 01/01/2017)]
--- NOTE | 2016-12-31 23:21 | DIAGNOSTIC IMAGING REPORT ---
PROCEDURE: US BILATERAL CAROTID DOPPLER INDICATION: DIZZINESS TECHNIQUE: Color Doppler duplex imaging of the carotid and vertebral vessels. COMPARISON: None. FINDINGS: Right common carotid artery peak systolic velocity 91 cm/second. Right internal carotid artery peak systolic velocity 83 cm/second. Right external carotid artery peak systolic velocity 73 cm/second. Right mtygapxd-wa-lawdbg carotid artery ratio 1.1 Right vertebral artery peak systolic velocity 35 cm/second antegrade. Left common carotid artery peak systolic velocity 87 cm/second. Left internal carotid artery peak systolic velocity 18 cm/second. Left external carotid artery peak systolic velocity 89 cm/second. Left jsbvdatg-dm-lnglrd carotid artery ratio 0.89 Left vertebral artery peak systolic velocity 51 cm/second antegrade. IMPRESSION: 1. Minimal atheromatous plaque of the carotid bifurcations. 2. No evidence of significant stenosis. Velocity criteria are extrapolated from diameter data as defined by the Society of Radiologists in Ultrasound Consensus Conference, Radiology 2003; 229; 340-346.
--- NOTE | 2016-12-31 23:21 | DIAGNOSTIC IMAGING REPORT ---
PROCEDURE: US BILATERAL CAROTID DOPPLER INDICATION: DIZZINESS TECHNIQUE: Color Doppler duplex imaging of the carotid and vertebral vessels. COMPARISON: None. FINDINGS: Right common carotid artery peak systolic velocity 91 cm/second. Right internal carotid artery peak systolic velocity 83 cm/second. Right external carotid artery peak systolic velocity 73 cm/second. Right uuxfqpjr-fd-nonvdv carotid artery ratio 1.1 Right vertebral artery peak systolic velocity 35 cm/second antegrade. Left common carotid artery peak systolic velocity 87 cm/second. Left internal carotid artery peak systolic velocity 18 cm/second. Left external carotid artery peak systolic velocity 89 cm/second. Left aqhlbiob-xw-kkpkqk carotid artery ratio 0.89 Left vertebral artery peak systolic velocity 51 cm/second antegrade. IMPRESSION: 1. Minimal atheromatous plaque of the carotid bifurcations. 2. No evidence of significant stenosis. Velocity criteria are extrapolated from diameter data as defined by the Society of Radiologists in Ultrasound Consensus Conference, Radiology 2003; 229; 340-346.
--- NOTE | 2017-01-01 13:33 | ED DISCHARGE INSTRUCTIONS ---
Patient: YSABEL BAKER General Instructions [facility] VisitID: [id number] [place] [address] 36y, F Registration Date/Time: 12/31/2016 Headache- resistant to treatment. INSTRUCTIONS (if any sudden changes, new vomiting/ fevers, return to ER). Warnings: Further evaluation is necessary. CONTROLLED SUBSTANCE WARNINGS. Follow-up: Follow up with your doctor in two days. ADDITIONAL INFORMATION Headache [Unspecified] The cause of your headache today is not clear, but it does not appear to be the sign of any serious illness. Under stress, some people tense the muscles of their shoulder, neck and scalp without knowing it. If this condition lasts long enough, a TENSION HEADACHE can occur. A MIGRAINE HEADACHE is caused by changes in blood flow to the brain. A migraine attack may be triggered by emotional stress, hormone changes during the menstrual cycle, oral contraceptives, alcohol use, certain foods containing tyramine, eye strain, weather changes, missing meals, lack of sleep or oversleeping. Other causes of headache include a viral illness with high fever, head injury with concussion, sinus, ear or throat infection, dental pain and TMJ (jaw joint) pain. More serious but less common causes of headache include stroke, brain hemorrhage, brain tumor, meningitis and encephalitis. Home Care: If you were given pain medicine for this headache, do not drive yourself home. Arrange for a ride, instead. When you get home, try to sleep. You should feel much better when you wake up. Apply heat to the back of your neck to relieve neck muscle spasm. Migraine headaches may respond best to an ice pack on the forehead or at the base of the skull. If you are having nausea or vomiting, follow a light diet until your headache is relieved. If you have a migraine type headache, use sunglasses when in the daylight or around bright indoor lighting until symptoms improve. Bright glaring light can worsen this kind of headache. Follow Up with your doctor if the headache is not better within the next 24 hours. If you have frequent headaches you should discuss a treatment plan with your primary care doctor. By being aware of the earliest signs of headache, and starting treatment right away, you may be able to stop the pain yourself. Get Prompt Medical Attention if any of the following occur: Worsening of your head pain or no improvement within 24 hours Repeated vomiting (unable to keep liquids down) Fever of 100.4F (38C) or higher, or as directed by your healthcare provider Stiff neck Extreme drowsiness, confusion or fainting Dizziness, vertigo (dizziness with spinning sensation) Weakness of an arm or leg or one side of the face Difficulty with speech or vision You have been given the following additional information: Headache, Unspecified (Electronically signed by Peggy Aguirre P.A.-C 01/01/2017 13:33)
--- NOTE | 2017-01-01 13:34 | ED MAR SUMMARY ---
..... Medication Administration Record [facility] [address] [address] Patient: YSABEL BAKER Visit ID: [id number] 36y, F Weight: 61.2 kg Height/Length: 60 in BMI: 26.4 ALLERGIES: Compazine, Reglan Start 19:05 12/31/2016 Janet Spain R.N., Stop 21:50 12/31/2016 Janet Spain R.N. Medication Administered: IV NS (SALINE), Dose: IV Fluids over 1 minute(s), Rate: 1000 mL/hr, Dispensed: 1000 mL bag, Site: #1 right forearm. Medication Ordered: IV NS : initial bolus 1000 mL (1000 mL/hr), then 1000 mL/hr for X1 (NOW); Erwin. Given 19:07 12/31/2016 Janet Spain R.N. Medication Administered: ZOFRAN [IVP] (ONDANSETRON HCL), Dose: 4 mg IVP over 1 minute(s), Site: #1 right forearm. Medication Ordered: Zofran IV 4 mg (NOW). Given 19:08 12/31/2016 Janet Spain R.N. Medication Administered: TORADOL [IVP], Dose: 30 mg IVP over 1 minute(s), Site: #1 right forearm. Medication Ordered: Toradol IV 30 mg (NOW). Given 20:35 12/31/2016 Janet Spain R.N. Medication Administered: DILAUDID [IVP] (HYDROMORPHONE HCL PF), Dose: 1 mg IVP over 1 minute(s), Site: #1 right forearm. Medication Ordered: Dilaudid IV 1 mg (HIGH ALERT MEDICATION, NOW). Given 21:10 12/31/2016 Janet Spain R.N. Medication Administered: DECADRON [IVP], Dose: 10 mg IVP over 1 minute(s), Site: #1 right forearm. Medication Ordered: Decadron IV 10 mg (NOW). Given 21:40 12/31/2016 Janet Spain R.N. Medication Administered: ATIVAN [IVP] (LORAZEPAM), Dose: 1 mg IVP over 1 minute(s), Site: #1 right forearm. Medication Ordered: Ativan IV 1 mg (HIGH ALERT MEDICATION, NOW). Given 23:09 12/31/2016 Irma Asher R.N. Medication Administered: MECLIZINE [PO], Dose: 25 mg Tablets PO. Medication Ordered: Meclizine PO 25 mg (NOW). Given 23:14 12/31/2016 Irma Asher R.N. Medication Administered: PHENERGAN [IVP] (PROMETHAZINE HCL), Dose: 25 mg IVP over 5 minute(s), Site: #1 right forearm. Medication Ordered: Phenergan IV 25 mg (HIGH ALERT MEDICATION, NOW). Given 23:16 12/31/2016 Irma Asher R.N. Medication Administered: DILAUDID [IVP] (HYDROMORPHONE HCL PF), Dose: 1 mg IVP over 2 minute(s), Site: #1 right forearm. Medication Ordered: Dilaudid IV 1 mg (HIGH ALERT MEDICATION, NOW).
--- NOTE | 2017-01-01 13:34 | ED MED RECONCILIATION SUMMARY ---
Patient: YSABEL BAKER Medication Reconciliation Report [facility] VisitID: [id number] [place] [address] 36y, F Registration Date/Time: 12/31/2016 Weight: 61.2 kg Height/Length: 60 in. BMI: 26.4 ALLERGIES: Compazine, Reglan The patient's Home Medications are listed below: THE FOLLOWING MEDICATIONS NEED TO BE RECONCILED: Maxalt prn zofran 4mg ODT taking without relief today The source(s) of the original Home Medication information: Not obtained. The following Medications were given to the patient in the Emergency Department: IV NS IV Fluids bolus 0, then 1000 mL/hr, administered: 12/31/2016 7:05:00 PM Zofran [IVP] IVP 4 mg, administered: 12/31/2016 7:07:00 PM Toradol [IVP] IVP 30 mg, administered: 12/31/2016 7:08:00 PM Decadron [IVP] IVP 10 mg, administered: 12/31/2016 9:10:00 PM Dilaudid [IVP] IVP 1 mg, administered: 12/31/2016 8:35:00 PM Ativan [IVP] IVP 1 mg, administered: 12/31/2016 9:40:00 PM Meclizine [PO] PO 25 mg, administered: 12/31/2016 11:09:00 PM PHENERGAN [IVP] IVP 25 mg, administered: 12/31/2016 11:14:00 PM Dilaudid [IVP] IVP 1 mg, administered: 12/31/2016 11:16:00 PM The following Medications were prescribed to the patient: None.
--- NOTE | 2017-01-01 13:34 | ED MED RECONCILIATION SUMMARY ---
Patient: YSABEL BAKER Medication Reconciliation Report [facility] VisitID: [id number] [place] [address] 36y, F Registration Date/Time: 12/31/2016 Weight: 61.2 kg Height/Length: 60 in. BMI: 26.4 ALLERGIES: Compazine, Reglan The patient's Home Medications are listed below: THE FOLLOWING MEDICATIONS NEED TO BE RECONCILED: Maxalt prn zofran 4mg ODT taking without relief today The source(s) of the original Home Medication information: Not obtained. The following Medications were given to the patient in the Emergency Department: IV NS IV Fluids bolus 0, then 1000 mL/hr, administered: 12/31/2016 7:05:00 PM Zofran [IVP] IVP 4 mg, administered: 12/31/2016 7:07:00 PM Toradol [IVP] IVP 30 mg, administered: 12/31/2016 7:08:00 PM Decadron [IVP] IVP 10 mg, administered: 12/31/2016 9:10:00 PM Dilaudid [IVP] IVP 1 mg, administered: 12/31/2016 8:35:00 PM Ativan [IVP] IVP 1 mg, administered: 12/31/2016 9:40:00 PM Meclizine [PO] PO 25 mg, administered: 12/31/2016 11:09:00 PM PHENERGAN [IVP] IVP 25 mg, administered: 12/31/2016 11:14:00 PM Dilaudid [IVP] IVP 1 mg, administered: 12/31/2016 11:16:00 PM The following Medications were prescribed to the patient: None.
--- NOTE | 2017-01-01 13:34 | ED MAR SUMMARY ---
..... Medication Administration Record [facility] [address] [place] [address] Patient: YSABEL BAKER Visit ID: [id number] 36y, F Weight: 61.2 kg Height/Length: 60 in BMI: 26.4 ALLERGIES: Compazine, Reglan Start 19:05 12/31/2016 Janet Spain R.N., Stop 21:50 12/31/2016 Janet Spain R.N. Medication Administered: IV NS (SALINE), Dose: IV Fluids over 1 minute(s), Rate: 1000 mL/hr, Dispensed: 1000 mL bag, Site: #1 right forearm. Medication Ordered: IV NS : initial bolus 1000 mL (1000 mL/hr), then 1000 mL/hr for X1 (NOW); Erwin. Given 19:07 12/31/2016 Janet Spain R.N. Medication Administered: ZOFRAN [IVP] (ONDANSETRON HCL), Dose: 4 mg IVP over 1 minute(s), Site: #1 right forearm. Medication Ordered: Zofran IV 4 mg (NOW). Given 19:08 12/31/2016 Janet Spain R.N. Medication Administered: TORADOL [IVP], Dose: 30 mg IVP over 1 minute(s), Site: #1 right forearm. Medication Ordered: Toradol IV 30 mg (NOW). Given 20:35 12/31/2016 Janet Spain R.N. Medication Administered: DILAUDID [IVP] (HYDROMORPHONE HCL PF), Dose: 1 mg IVP over 1 minute(s), Site: #1 right forearm. Medication Ordered: Dilaudid IV 1 mg (HIGH ALERT MEDICATION, NOW). Given 21:10 12/31/2016 Janet Spain R.N. Medication Administered: DECADRON [IVP], Dose: 10 mg IVP over 1 minute(s), Site: #1 right forearm. Medication Ordered: Decadron IV 10 mg (NOW). Given 21:40 12/31/2016 Janet Spain R.N. Medication Administered: ATIVAN [IVP] (LORAZEPAM), Dose: 1 mg IVP over 1 minute(s), Site: #1 right forearm. Medication Ordered: Ativan IV 1 mg (HIGH ALERT MEDICATION, NOW). Given 23:09 12/31/2016 Irma Asher R.N. Medication Administered: MECLIZINE [PO], Dose: 25 mg Tablets PO. Medication Ordered: Meclizine PO 25 mg (NOW). Given 23:14 12/31/2016 Irma Asher R.N. Medication Administered: PHENERGAN [IVP] (PROMETHAZINE HCL), Dose: 25 mg IVP over 5 minute(s), Site: #1 right forearm. Medication Ordered: Phenergan IV 25 mg (HIGH ALERT MEDICATION, NOW). Given 23:16 12/31/2016 Irma Asher R.N. Medication Administered: DILAUDID [IVP] (HYDROMORPHONE HCL PF), Dose: 1 mg IVP over 2 minute(s), Site: #1 right forearm. Medication Ordered: Dilaudid IV 1 mg (HIGH ALERT MEDICATION, NOW).
== END 2016-12-31 23:31 | disposition home or self-care (01) ==
LOC: ED SRH 18:23
DX: R51 Headache (principal); F17.210 Nicotine dependence, cigarettes, uncomplicated; Z88.8 Allergy status to other drugs, medicaments and biological substances
CPT/HCPCS: 90100; 95059